=== PATIENT | female | born 1960 | race African-American/Black ===

== ENCOUNTER 2016-09-05 20:17 | Emergency (ER) | payer OTHER ==
[~2016-09-05] VITALS: Ht 167.6 cm; Wt 59.0 kg
[~2016-09-05 20:17] MED LIST: AMOX1TAB61 PO; METH-38 PO; MULT-246 PO; NAPR500T3 PO; OMEG500C3 PO
[2016-09-05 21:30] LABS: BASO # 0.1 x10^3/uL (0.0-0.2); BASO % 1 % (0-3); EOS % 8 % (0-3); HEMATOCRIT 40.1 % (36.0-47.0); HEMOGLOBIN 12.6 g/dL (12.0-15.5); LYMPH # 2.7 x10^3/uL (1.0-4.8); LYMPH % 40 % (24-48); MEAN CORPUSCULAR HEMOGLOBIN 23 pg (25-35); MEAN CORPUSCULAR HGB CONC 32 g/dL (31-37); MEAN CORPUSCULAR VOLUME 73 fL (79-100); MONO % 9 % (0-9); NEUT % 42 % (31-73); PLATELET COUNT 221 x10^3/uL (140-400); RED CELL DISTRIBUTION WIDTH 15.5 % (11.5-14.5); WHITE BLOOD COUNT 6.8 x10^3/uL (4.0-11.0)
[2016-09-05 21:42] LABS: CALCIUM 9.4 mg/dL (8.5-10.1); CREATININE 0.9 mg/dL (0.6-1.0); GFR 77.8; POTASSIUM 4.1 mmol/L (3.5-5.1)
[2016-09-05 21:49] LABS: ALBUMIN 3.6 g/dL (3.4-5.0); TOTAL BILIRUBIN 0.3 mg/dL (0.2-1.0); TOTAL PROTEIN 7.2 g/dL (6.4-8.2)
[2016-09-05 22:20] VITALS: BP 133/73
[2016-09-05] MEDS ORDERED: AZITHROMYCIN 250 MG TABLET. PO ONE (22:30)
[2016-09-05] MEDS ORDERED: predniSONE 10 MG TABLET PO ONE (22:30)
[2016-09-05] MEDS ORDERED: AZIT250T PO (22:38)
[2016-09-05] MEDS ORDERED: PRED50TA PO (22:38)
--- NOTE | 2016-09-05 22:38 | PHYS DOC ---
Past Medical History Past Medical History: Bronchitis Past Surgical History: Tonsillectomy Additional Past Surgical Histo: sinus sx to remove polyps Alcohol Use: None Drug Use: None Adult General Chief Complaint Chief Complaint: COUGH HPI HPI Patient is a 56 year old female who presents here today complaining of shortness breath and cough since Saturday. Patient reports she's had a yellow productive cough. Patient portion of the history of COPD and bronchitis. No history of hypertension diabetes liver or kidney pals. No history of coronary disease. No history of atrial fibrillation. No prior surgeries. Patient reports she smokes no focal or drugs. Patient is allergic to any medications. Patient has any fevers shakes chills. Patient has any abdominal pain. Patient has a nausea vomiting or diarrhea. Patient denies any dysuria frequency or urgency. Patient reports that she's been under a lot of stress recently and she thinks that she likely got sick with her immune system was down. She reports her recently was admitted to the hospital secondary to alcohol withdrawal seizures. Constitutional: Denies fever or chills [] Eyes: Denies change in visual acuity, redness, or eye pain [] HENT: Denies nasal congestion or sore throat [] All other review systems are negative except as documented in the history of present illness portion. Constitutional: Well developed, well nourished, no acute distress, non-toxic appearance. [] HENT: Normocephalic, atraumatic, bilateral external ears normal, oropharynx moist, no oral exudates, nose normal. [] Eyes: no discharge. [] Neck: Normal range of motion, no tenderness, supple, no stridor. [] Cardiovascular:Heart rate regular rhythm, Lungs & Thorax: Bilateral breath sounds clear to auscultation [] Abdomen: Bowel sounds normal, soft, no tenderness, no masses, no pulsatile masses. [] Skin: Warm, dry, no erythema, no rash. [] Back: No tenderness, no CVA tenderness. [] Extremities: No tenderness, no cyanosis, no clubbing, ROM intact, no edema. [] Neurologic: Alert and oriented X 3, normal motor function, normal sensory function, no focal deficits noted. [] Psychologic: Affect normal, judgement normal, mood normal. [] Assessment and plan 48-year-old female who presents here today with likely bronchitis. Patient's clinically hemodynamically stable. Patient be started on Zithromax and prednisone will be asked to follow-up with her primary care doctor this week. 6cxr revealed normal heart no infiltrates or effusions. Current Medications Current Medications Current Medications Medications (Trade) Dose Ordered Sig/Terence Start Time Stop Time Status Last Admin Dose Admin Azithromycin (Zithromax) 500 mg 1X ONCE 09/05/16 22:30 09/05/16 22:31 Prednisone (Prednisone) 40 mg 1X ONCE 09/05/16 22:30 09/05/16 22:31 Allergies Allergies Allergies Coded Allergies Type Severity Reaction Last Updated Verified aspirin Allergy Intermediate 11/24/14 Yes ibuprofen Allergy Intermediate 11/24/14 Yes Current Patient Data Vital Signs Vital Signs Date Time Temp Pulse Resp B/P (MAP) Pulse Ox O2 Delivery O2 Flow Rate FiO2 09/05/16 20:29 98.4 86 18 130/71 (90) 96 Room Air 98.4 Lab Values Laboratory Tests Test 09/05/16 21:20 White Blood Count 6.8 x10^3/uL (4.0-11.0) Red Blood Count 5.50 x10^6/uL (3.50-5.40) H Hemoglobin 12.6 g/dL (12.0-15.5) Hematocrit 40.1 % (36.0-47.0) Mean Corpuscular Volume 73 fL (79-100) L Mean Corpuscular Hemoglobin 23 pg (25-35) L Mean Corpuscular Hemoglobin Concent 32 g/dL (31-37) Red Cell Distribution Width 15.5 % (11.5-14.5) H Platelet Count 221 x10^3/uL (140-400) Neutrophils (%) (Auto) 42 % (31-73) Lymphocytes (%) (Auto) 40 % (24-48) Monocytes (%) (Auto) 9 % (0-9) Eosinophils (%) (Auto) 8 % (0-3) H Basophils (%) (Auto) 1 % (0-3) Neutrophils # (Auto) 2.9 x10^3uL (1.8-7.7) Lymphocytes # (Auto) 2.7 x10^3/uL (1.0-4.8) Monocytes # (Auto) 0.6 x10^3/uL (0.0-1.1) Eosinophils # (Auto) 0.5 x10^3/uL (0.0-0.7) Basophils # (Auto) 0.1 x10^3/uL (0.0-0.2) Sodium Level 144 mmol/L (136-145) Potassium Level 4.1 mmol/L (3.5-5.1) Chloride Level 106 mmol/L (98-107) Carbon Dioxide Level 31 mmol/L (21-32) Anion Gap 7 (6-14) Blood Urea Nitrogen 15 mg/dL (7-20) Creatinine 0.9 mg/dL (0.6-1.0) Estimated GFR (Cockcroft-Gault) 77.8 BUN/Creatinine Ratio 17 (6-20) Glucose Level 94 mg/dL (70-99) Calcium Level 9.4 mg/dL (8.5-10.1) Total Bilirubin 0.3 mg/dL (0.2-1.0) Aspartate Amino Transferase (AST) 21 U/L (15-37) Alanine Aminotransferase (ALT) 25 U/L (14-59) Alkaline Phosphatase 83 U/L (46-116) Troponin I Quantitative < 0.017 ng/mL (0.000-0.055) PJ-Gne-S-Type Natriuretic Peptide 24 pg/mL (0-124) Total Protein 7.2 g/dL (6.4-8.2) Albumin 3.6 g/dL (3.4-5.0) Albumin/Globulin Ratio 1.0 (1.0-1.7) Laboratory Tests 09/05/16 21:20 Laboratory Tests 09/05/16 21:20 EKG EKG [] Radiology/Procedures Radiology/Procedures [] Course & Med Decision Making Course & Med Decision Making Pertinent Labs and Imaging studies reviewed. (See chart for details) [] Dragon Disclaimer Dragon Disclaimer This electronic medical record was generated, in whole or in part, using a voice recognition dictation system. Departure Departure Impression: Primary Impression: Acute exacerbation of COPD with asthma Additional Impression: Bronchitis Disposition: 01 HOME, SELF-CARE Condition: IMPROVED Referrals: JOSEF ASHLEY MD (PCP) Patient Instructions: Acute Bronchitis Scripts Azithromycin (ZITHROMAX) 250 Mg Tablet 1 PKG PO UD, #6 TAB Prov: GIOVANNI MOREL MD 09/05/16 Prednisone (PREDNISONE) 50 Mg Tablet 1 TAB PO DAILY, #5 TAB Prov: GIOVANNI MOREL MD 09/05/16 Problem Qualifiers GIOVANNI MOREL MD Sep 05, 2016 22:38
--- NOTE | 2016-09-06 07:58 | RAD ---
Chest 2 view 09/05/2016 Indication: Cough and shortness of breath for 5 days Comparison: Chest radiograph 12/01/2015, CT chest 12/30/2015. Findings: Cardiac and mediastinal silhouettes are within normal limits. No pleural effusion, pneumothorax or focal consolidation. Impression: No acute cardiopulmonary abnormality.
--- NOTE | 2016-09-06 08:19 | EKG ---
[facility] [address] [place] [id number] Test Date: 2016-09-05 Test Time: 21:18:13 Pat Name: RADHA BRODY Department: Room: Gender: F [employer]: : 1960 Requested By: GIOVANNI MOREL Order Number: [id number] Reading MD: Kailash Fernandez Measurements Intervals [place] Rate: 80 P: 55 [place]: 140 QRS: -4 QRSD: 70 T: 54 QT: 370 QTc: 430 Interpretive Statements SINUS RHYTHM CONSISTENT WITH ANTEROSEPTAL INFARCT Electronically Signed On 09-06-2016 8:40:16 CDT by Kailash Fernandez
== END 2016-09-05 22:44 | disposition home or self-care (01) ==
LOC: ER 20:17
DX: J44.1 Chronic obstructive pulmonary disease with (acute) exacerbation (principal); Z88.6 Allergy status to analgesic agent
CPT/HCPCS: 36415; 71020; 80053; 83880; 84484; 85027; 93005; 99285; J7512; Q0144

== ENCOUNTER → 2021-01-26 | Outpatient (CLI) | payer OTHER ==
[~2021-01-26] MED LIST changes: +AZIT250T PO; +NAPR-514 PO; -NAPR500T3 PO; +PRED50TA PO
== END ==
LOC: LAB 16:38
PROVIDERS: ATTEND Internal Medicine Pulmonary Disease
DX: U07.1 COVID-19 (principal)
CPT/HCPCS: U0003; U0005